=== PATIENT | male | born 1995 | race Caucasian/White ===

== ENCOUNTER 2021-03-20 14:45 | Emergency (ER) | payer OTHER, SELFPAY ==
--- NOTE | ~2021-03-20 | US_ITS ---
EXAMINATION: US scrotum doppler EXAM DATE: 03/20/2021 15:21 INDICATION: Left testicular pain. TECHNIQUE: Multiple grayscale and Doppler images of the testicles and scrotum were obtained bilateral ly. There is no prior study for comparison. FINDINGS: Right testicle measures 4.8 x 2.6 x 3.1 cm and is morphologically normal. Low resistance Doppler kacey w confirmed. The epididymis is unremarkable. There is no hydrocele or varicocele. Left testicle measures 5.5 x 2.5 x 3.4 cm and is morphologically normal. Low resistance Doppler flow confirmed. The epididymis is unremarkable. Small hydrocele. IMPRESSION: 1. Small left hydrocele. Reviewed, dictated and finalized at location B. IMPRESSION: 1. Small left hydrocele.
[2021-03-20 14:57] VITALS: BP 138/83; PULSE 69; RESP 18; TEMP 36.8
[2021-03-20 16:08] VITALS: BP 122/83; PULSE 58; RESP 16; O2SAT 98
--- NOTE | 2021-03-20 16:25 | ED.MALEGU ---
HPI - Male Genitourinary General Chief complaint: Urogenital-Male Stated complaint: L Testical Pain Time Seen by Provider: 03/20/21 16:09 Source: patient and RN notes reviewed Mode of arrival: ambulatory Limitations: no limitations History of Present Illness HPI Narrative: Patient is 25 years old white male with come at 9 AM today with some discomfort of the left testicle. Patient denies any trauma, fever, chills, nausea, vomiting, or urinary symptoms. Patient sexually active. Patient reported to having similar symptoms years ago which had resolved on arrival to the emergency room. Currently patient is asymptomatic Related Data Allergies Allergy/AdvReac Type Severity Reaction Status Date / Time No Known Allergies Allergy Mild Unverified 09/12/03 14:57 Review of Systems Review of Systems: Narrative: CONSTITUTIONAL: Denies fever, chills, or sweats. EYES: Denies visual changes, redness, or discharge. ENT: Denies rhinorrhea, congestion, sore throat, or otalgia. CARDIOVASCULAR: Denies chest pain, palpitations, or edema. RESPIRATORY: Denies cough or dyspnea. GASTROINTESTINAL: Denies abdominal pain, nausea, vomiting, or diarrhea. GENITOURINARY: Denies dysuria or hematuria. SKIN: Denies rash or itching. MUSCULOSKELETAL: Denies back pain, joint pain, or myalgia. NEUROLOGIC: Denies headache, numbness, or weakness. PSYCHIATRIC: Denies anxiety or depression. Exam Narrative: Exam Narrative: General appearance: Well-developed, well-nourished Skin: Normal color Head: Normocephalic, nontraumatic Eyes: Clear conjunctiva ENT: Oropharynx normal, ears normal, nose normal Neck: Supple, nontender Chest and respiratory: Airway patent, no respiratory distress, no accessory muscle use Heart: Regular rate/rhythm Abdomen: Soft, nontender, no organomegaly, quiet bowel sounds, testicular exam showed no tenderness, no swelling, no bruises, no warmth or rash. Vascular: Normal peripheral pulses, normal capillary refill. Musculoskeletal: Normal range of motion, nontender back Neurologic: Alert and oriented ?3, [employer] WORK[employer] is normal as tested, no gross motor deficit Course Course Emergency Course: Stable Vital Signs Vital signs: Vital Signs Temperature 36.8 C 03/20/21 14:57 Pulse Rate 69 03/20/21 14:57 Respiratory Rate 18 03/20/21 14:57 Blood Pressure 138/83 03/20/21 14:57 Temperature 36.8 C 03/20/21 14:57 Pulse Rate 58 L 03/20/21 16:08 Respiratory Rate 16 03/20/21 16:08 Blood Pressure 122/83 03/20/21 16:08 Pulse Oximetry 98 03/20/21 16:08 MDM - Male Genitourinary MDM Narrative Medical decision making narrative: Patient presents with left testicular pain, resolved on arrival to the emergency room. Ultrasound ordered. Further plan to follow Differential Diagnosis Differential diagnosis: Likely epididymitis and other (Hydrocele, varicocele) Critical Care Time Critical Care Time Critical Care Time: No Discharge Plan Discharge Clinical Impression: Hydrocele in adult Patient Disposition: Home, Self-Care Condition: Stable Instructions: Antibiotic Form, Hydrocele (ED) Additional Instructions: Return if symptoms are worsening , call your family physician for appointment, take Tylenol as as needed for aches and pain, continue home medications. Follow-up/Referrals: Leesa,Delfino Palmer MD [Primary Care Provider] - Jaxon Little MD [Physician] - Stand Alone Forms: Work/School Release IP
== END 2021-03-20 16:39 | disposition home or self-care (01) ==
PROVIDERS: Emergency Provider Emergency Medicine; PCP Internal Medicine
DX: N43.3 Hydrocele, unspecified (principal)
CPT/HCPCS: 76870; 93976; 99284